=== PATIENT | female | born 1985 | race Hispanic/Latino ===

== ENCOUNTER 2023-12-29 06:51 | Day surgery (SDC) | payer OTHER ==
[2023-12-28 10:50] VITALS: BP 126/87; PULSE 63; RESP 18
[2023-12-28 10:54] LABS: BASOPHILS # (AUTO) 0.02 K/uL (0.00-0.20); BASOPHILS % (AUTO) 0.3 % (0.0-5.0); EOSINOPHILS # (AUTO) 0.05 K/uL (0.00-0.70); EOSINOPHILS % (AUTO) 0.8 % (0.0-8.0); HEMATOCRIT 44.2 % (36-48); IMMATURE GRANULOCYTE ABSOLUTE 0.01 K/uL (0-1); LYMPHOCYTES # (AUTO) 2.1 K/uL (1.0-4.8); LYMPHOCYTES % (AUTO) 32.7 % (21.0-51.0); MEAN CORPUSCULAR HEMOGLOBIN 30.2 pg (27.0-33.0); MEAN CORPUSCULAR HGB CONC 33.7 g/dL (32.0-36.0); MEAN CORPUSCULAR VOLUME 89.7 fL (79-99); MONOCYTES # (AUTO) 0.3 K/uL (0.1-1.0); MONOCYTES % (AUTO) 4.3 % (3.0-13.0); NEUTROPHILS # (AUTO) 3.9 K/uL (1.8-7.7); NEUTROPHILS % (AUTO) 61.7 % (40.0-77.0); PLATELET COUNT (AUTO) 271 K/uL (130-400); RED BLOOD CELL COUNT(AUTO) 4.93 MIL/uL (4.00-5.50); RED CELL DISTRIBUTION WIDTH 13.1 % (11.0-15.5); WHITE BLOOD COUNT (AUTO) 6.3 K/uL (4.8-10.8)
[2023-12-28 11:05] LABS: CREATININE 0.9 mg/dL (0.5-1.0); POTASSIUM 4.1 mmol/L (3.5-5.1)
[2023-12-29] VITALS (21 sets, daily range): BP systolic 100–127; BP diastolic 57–72; PULSE 62–90; RESP 12–19
[~2023-12-29] VITALS: Ht 165.1 cm; Wt 79.8 kg
[2023-12-29] MEDS ORDERED: LIDOCAINE 1%-EPI 1:100,000 20 ML VIAL ONE (07:30)
[2023-12-29] MEDS ORDERED: BUPIVACAINE/PF 0.25% 30ML VIAL IJ ONE (07:30)
[2023-12-29] MEDS ORDERED: CEFAZOLIN SODIUM 2 GM VIAL ONE (07:43)
[2023-12-29] MEDS ORDERED: METRONIDAZOLE 500MG/100ML BAG 200 ML ONE (07:44)
[2023-12-29] MEDS: LACTATED RINGERS 1000ML 1,000 ML IV ONE (08:12)
[2023-12-29] MEDS ORDERED: SUCCINYLCHOLINE CHLORIDE 20 MG/ML 10 ML VIAL ONE (09:37)
[2023-12-29] MEDS ORDERED: LIDOCAINE PF 100MG/5ML (2%) SYRINGE 5ML ONE (09:37)
[2023-12-29] MEDS ORDERED: MIDAZOLAM HCL 1 MG/ML 2ML VIAL ONE ×2 (09:38→13:33)
[2023-12-29] MEDS ORDERED: ROCURONIUM BROMIDE 10MG/1ML 5ML VL ONE (09:38)
[2023-12-29] MEDS ORDERED: DEXAMETHASONE SOD PHOSPHATE 10MG/ML 1ML VIAL ONE (09:38)
[2023-12-29] MEDS ORDERED: NEOSTIGMINE METHYLSULFATE 1MG/ML IV ONE ×2 (09:38→15:15)
[2023-12-29] MEDS ORDERED: PROPOFOL 10 MG/ML 20ML VIAL IV ONE (09:38)
[2023-12-29] MEDS ORDERED: GLYCOPYRROLATE 0.2 MG/ML 5 ML VIAL ONE ×2 (09:38→15:15)
[2023-12-29] MEDS ORDERED: ONDANSETRON 4MG INJ ONE ×3 (09:38→15:16)
[2023-12-29] MEDS ORDERED: FENTANYL CITRATE PF 50 MCG/1 ML 2ML VIAL ONE (09:40)
[2023-12-29] MEDS ORDERED: FAMOTIDINE 20MG VIAL IV ONE (13:27)
[2023-12-29] MEDS ORDERED: ACETAMINOPHEN 1,000 MG/100 ML VIAL IV ONE (13:27)
[2023-12-29] MEDS ORDERED: KETAMINE 50MG/ML SYRINGE 50 MG/ML DISP.SYRIN ONE (13:29)
[2023-12-29] MEDS: ONDANSETRON 4MG INJ ONE (16:01)
[2023-12-29] MEDS: MEPERIDINE-PF 25 MG/ML SYG ONE ×2 (16:01→16:25)
[2023-12-29] MEDS: SCOPOLAMINE HYDROBROMIDE 1 EACH ADH..PATCH TD SCH (17:13)
[2023-12-29] MEDS: METOCLOPRAMIDE 10 MG/2 ML VIAL IVP ONE (17:16)
[2023-12-29] MEDS: SCOPOLAMINE HYDROBROMIDE 1 EACH ADH..PATCH TD ONE (17:17)
[2023-12-29] MEDS ORDERED: BUPIVACAINE/PF 0.5% 30ML VIAL ONE (17:30)
== END 2023-12-29 19:25 | disposition home or self-care (01) ==
LOC: DAH 06:51
PROVIDERS: ATTEND Surgery
DX: Z43.1 Encounter for attention to gastrostomy (principal); R14.0 Abdominal distension (gaseous); K31.84 Gastroparesis; F41.9 Anxiety disorder, unspecified; F32.A Depression, unspecified; E66.9 Obesity, unspecified; Z79.899 Other long term (current) drug therapy
CPT/HCPCS: 80048; 84703; 85025; 86850; 86900; 86901; 36415; 93005; 49440; A6260; B4087; A4663; J7030; A4215 ×2; J7120; J3490 ×6; J3010; J1100; J0330; J2001; J2250; J2704; J2405 ×4; J2710 ×2; J0665; J2175 ×2; J2765; J0690; G0168; A4649; A4930 ×2; A4223; A4222; A4221; A4600; 43235